=== PATIENT | female | born 1955 | race Caucasian/White ===

== ENCOUNTER 2020-05-28 13:06 | Emergency (ER) | payer OTHER ==
[~2020-05-28] VITALS: Ht 157.5 cm; Wt 61.4 kg
[2020-05-28 13:13] VITALS: BP 162/85
[2020-05-28] MEDS ORDERED: ARIP5TAB8 PO (13:32)
[2020-05-28] MEDS ORDERED: OS500 PO (13:32)
[2020-05-28] MEDS ORDERED: CALCITROL PO (13:32)
[2020-05-28] MEDS ORDERED: METO25 PO (13:32)
[2020-05-28] MEDS ORDERED: CARB100 PO (13:32)
[2020-05-28] MEDS ORDERED: PHENOBARBITAL PO (13:32)
[2020-05-28] MEDS ORDERED: MULT-264 PO (13:32)
[2020-05-28] MEDS ORDERED: ASPI-728 PO (13:32)
[2020-05-28] MEDS ORDERED: AMLO-258 PO (13:32)
== END 2020-05-28 14:50 | disposition home or self-care (01) ==
LOC: EMS 13:25
DX: K64.4 Residual hemorrhoidal skin tags (principal); R60.0 Localized edema; S80.811A Abrasion, right lower leg, initial encounter; I10 Essential (primary) hypertension; F32.9 Major depressive disorder, single episode, unspecified; Z88.8 Allergy status to other drugs, medicaments and biological substances; Z79.899 Other long term (current) drug therapy; X58.XXXA Exposure to other specified factors, initial encounter; Y93.89 Activity, other specified; Y92.89 Other specified places as the place of occurrence of the external cause; Y99.8 Other external cause status